=== PATIENT | male | born 1940 | race Caucasian/White ===

== ENCOUNTER → 2018-10-14 | Day surgery (SDC) | payer MEDICARE, OTHER ==
[~2018-10-14] MED LIST: COREG25 MG PO; CRESTOR10 MG PO; ELIQUIS5 MG PO; ELMIRON 100 MG100 M1 PO; LOSARTAN POTASS50 MG PO
--- NOTE | ~2018-10-14 | PROC ---
[address] [place] [address] PROCEDURE REPORT Name: MARITZA ANGEL Room: [facility]#: [id number] Admission: 10/14/18 Attend Phys: Jonathan Thompson DO Discharge: Date of : 38 Report #: [id number] THIS REPORT FOR: //name// For GI report, please see the Provation report in Perceptive 7 content. By: 0651Medical Records Staff MARGUERITE /KRISTY
[2018-10-14 08:53] LABS: HEMATOCRIT 46.2 % (42.0-52.0); HEMOGLOBIN 15.2 gm/dL (14.0-18.0); MCH 29.8 pg (26.0-34.0); MCHC 32.9 g/dL (28.0-37.0); MCV 90.5 fL (80.0-100.0); MPV 8.5 fl. (7.2-11.1); RBC 5.1 mil/uL (4.50-6.00); RDW-CV 14.1 % (10.5-14.5); WBC 4.9 thou/uL (4.0-11.0)
[2018-10-14 09:07] LABS: ALBUMIN 4.1 g/dL (3.4-5.0); CALCIUM 8.8 mg/dL (8.5-10.1); CREATININE 1.4 mg/dL (0.6-1.3); POTASSIUM 4.1 mmol/L (3.5-5.1); TOTAL BILIRUBIN 0.8 mg/dL (<0.1-1.0); TOTAL PROTEIN 7.6 g/dL (6.4-8.2)
--- NOTE | 2018-10-14 13:18 | EKG ---
[place] [address] ELECTROCARDIOGRAM REPORT Name: MARITZA ANGEL Room: [facility]#: [id number] Admission: 10/14/18 Attend Phys: Jonathan Thompson DO Discharge: Date of : 38 Report #: [id number] THIS REPORT FOR: //name// [facility] Test Date: 2018-10-14 Test Time: 08:42:47 Pat Name: MARITZA ANGEL Department: Room: Gender: City Driver: : 1940 Requested By: Jonathan Thompson Order Number: [id number] MD: Jaylon Boone Measurements Intervals [place] Rate: 65 P: 79 [place]: 135 QRS: 114 QRSD: 118 T: 97 QT: 459 QTc: 478 Interpretive Statements Atrial-ventricular dual-paced complexes No further analysis attempted due to paced rhythm No previous ECG available for comparison Electronically Signed On 10-14-2018 13:18:21 CDT by Jaylon Boone [email or web address] <ELECTRONICALLY SIGNED> By: Jaylon Boone MD, [facility] 10/14/18 1318 1 1 Jaylon Boone MD, FACC /EPI
--- NOTE | 2018-10-15 17:07 | PATH ---
[address] [address] PATHOLOGY RPT PROCEDURE Name: [address] Room: [facility]#: [id number] Admission: 10/14/18 Date of : 38 Discharge: Report #: [id number] Path Case #: [id number] [facility] Accession Number: [id number] . 01 Material submitted: . PART A: CECAL POLYP; PIECEMEAL PART B: PROXIMAL ASCENDING COLON POLYP PART C: MID-ASCENDING COLON POLYP PART D: HEPATIC FLEXURE POLYP; PIECEMEAL PART E: DISTAL TRANSVERSE COLON - SUSPECT COLITIS PART F: DESCENDING COLON BIOPSY PART G: SIGMOID COLON BIOPSY PART H: RECTAL BIOPSY . 01 Clinical history: . Pre-OP DX: POS fecal occult blood test, Hx of GI diverticular BLD test Post-OP DX: Long-term use of anticoagulants . 02 Diagnosis: A. Cecal polyp, piecemeal: - Tubular adenoma, negative for high-grade dysplasia. . B. Proximal ascending colon polyp: - Tubular adenoma, negative for high-grade dysplasia. . C. Mid ascending colon polyp: - Tubular adenoma, negative for high-grade dysplasia. . D. Hepatic flexure polyp, piecemeal: - Tubular adenoma, negative for high-grade dysplasia. . E. Distal transverse colon (suspect colitis): - Hyperplastic lymphoid follicle (Peyer's patch) in otherwise normal colonic mucosa. . F. Descending colon biopsy: - Chronic active colitis, negative for granulomas, viral inclusions and dysplasia. See comment. . G. Sigmoid colon biopsy: - Focal active colitis with suggestion of chronic colitis, negative for granulomas, viral inclusions and dysplasia. See comment. . H. Rectal biopsy: - Chronic and severe active colitis with ulceration, fibrosis and regenerative features, negative for granulomas, viral inclusions and dysplasia. See comment. . (MATT:gonzalez; 10/15/2018) [place] [address] PATHOLOGY RPT PROCEDURE Name: [address] Room: [facility] Lelia#: [id number] Admission: 10/14/18 Date of : 38 Discharge: Report #: [id number] Path Case #: [id number] MBR/10/15/2018 . 02 Comment: The descending colon biopsy (F) shows benign colonic mucosa with crypt distortion and only minimal basal lymphoplasmacytosis and with easily identified neutrophils in the lamina propria. . The sigmoid colon biopsy (G) shows benign colonic mucosa with a fairly discreet focus of active inflammation with crypt disarray and minimal basal lymphoplasmacytosis suggesting, in addition, chronic inflammation. . The rectal biopsy (H) shows benign colonic mucosa with evidence of chronic inflammation including prominent basal lymphoplasmacytosis and crypt distortion, as well as active inflammation with ulceration, areas of inflamed stroma with a single cell layer of overlying epithelium, and prominent fibrosis. . These findings raise a concern for Crohn's disease and the histologic differential would include use of non-steroidal anti-inflammatory agents as well as diverticular disease. . (MATT:gonzalez; 10/15/2018) . 02 Electronically signed: . Cyril Flowers MD, Pathologist NPI- [id number] . 01 Gross description: . A. Received in formalin labeled "[address], cecal polyp, piecemeal," are multiple segments of vazquez soft tissue measuring 2.4 x 1.5 x 0.4 cm in aggregate dimensions. The specimen is filtered and entirely submitted in cassettes A1 and A2. . B. Received in formalin labeled "[address], proximal ascending colon polyp," are 5 segments of vazquez soft tissue measuring 1.5 x 0.9 x 0.4 cm in aggregate dimensions and ranging from 0.4 to 0.5 cm in maximum dimension. The specimen is submitted entirely in cassette B1. . C. Received in formalin labeled "[address], mid-ascending colon polyp," is a single segment of vazquez soft tissue measuring 0.4 cm in maximum dimension. The specimen is entirely submitted in cassette C1. . D. Received in formalin labeled "[address], hepatic flexure polyp," is a 1.0 x 0.4 x 0.4 cm polypoid piece of vazquez soft tissue. The margin is inked and the specimen is sectioned perpendicular to the margin and entirely submitted in cassette D1. Also received in the container is a 1.0 x 0.6 x 0.5 cm polypoid piece of vazquez soft tissue. The margin is inked and the specimen is sectioned [place] [address] PATHOLOGY RPT PROCEDURE Name: [address] Room: [facility]#: [id number] Admission: 10/14/18 Date of : 38 Discharge: Report #: [id number] Path Case #: [id number] entirely submitted in cassette D2. Additionally received in the container are multiple fragments of vazquez soft tissue measuring 2.5 x 1.5 x 0.4 cm in aggregate dimensions. The specimen is filtered and entirely submitted in cassettes D3 and D4. . E. Received in formalin labeled "[address], distal transverse colon- suspect colitis," is a single segment of vazquez soft tissue measuring 0.5 cm in maximum dimension. The specimen is entirely submitted in cassette E1. . F. Received in formalin labeled "[address], descending colon," are 2 segments of vazquez soft tissue measuring 0.5 x 0.2 x 0.2 cm in aggregate dimensions and ranging from 0.1 to 0.4 cm in maximum dimension. The specimen is submitted entirely in cassette F1. . G. Received in formalin labeled "[address], sigmoid colon," is a single segment of vazquez soft tissue measuring 0.4 cm in maximum dimension. The specimen is entirely submitted in cassette G1. . H. Received in formalin labeled "[address], rectal biopsy," are 2 segments of vazquez soft tissue measuring 0.7 x 0.2 x 0.1 cm in aggregate dimensions and ranging from 0.3 to 0.4 cm in maximum dimension. The specimen is submitted entirely in cassette H1. (TSD; 10/14/2018) TOB/TOB . 02 Pathologist provided ICD-10: D12.0, D12.2, D12.3, K52.9, K62.6, K62.89 . 02 CPT . 154224, 297197, 834116, 169948, 361258, 794664, 890113, 147223 Specimen Comment: A courtesy copy of this report has been sent to Specimen Comment: [phone], . Specimen Comment: Report sent to / DR ARAIZA Performed at: [address] [facility] [address], [place], [place] [id number] MD Timo Miranda MD Phone: [phone] Performed at: 02 [facility] [place] [address] [address], [place], [place] [id number] MD Cyril Flowers MD Phone: [phone]
== END | disposition home or self-care (01) ==
LOC: M.SUR 08:26
PROVIDERS: Internal Medicine Gastroenterology
DX: D12.0 Benign neoplasm of cecum (principal); D12.2 Benign neoplasm of ascending colon; D12.3 Benign neoplasm of transverse colon; K57.30 Diverticulosis of large intestine without perforation or abscess without bleeding; K63.89 Other specified diseases of intestine; K62.89 Other specified diseases of anus and rectum; K52.9 Noninfective gastroenteritis and colitis, unspecified; K62.6 Ulcer of anus and rectum; K64.4 Residual hemorrhoidal skin tags; I10 Essential (primary) hypertension; E78.5 Hyperlipidemia, unspecified; I48.91 Unspecified atrial fibrillation; G47.33 Obstructive sleep apnea (adult) (pediatric); Z79.01 Long term (current) use of anticoagulants; Z90.49 Acquired absence of other specified parts of digestive tract; Z95.0 Presence of cardiac pacemaker; Z98.890 Other specified postprocedural states; Z79.899 Other long term (current) drug therapy

== ENCOUNTER 2020-07-06 06:21 | Emergency (ER) | payer MEDICARE, OTHER ==
[~2020-07-06] VITALS: Ht 182.9 cm; Wt 90.7 kg
[2020-07-06 08:48] VITALS: BP 138/80
== END 2020-07-06 08:49 | disposition home or self-care (01) ==
LOC: M.ERS 06:21
DX: S01.01XA Laceration without foreign body of scalp, initial encounter (principal); I10 Essential (primary) hypertension; Z79.899 Other long term (current) drug therapy; W06.XXXA Fall from bed, initial encounter; Y93.89 Activity, other specified; Y92.89 Other specified places as the place of occurrence of the external cause; Y99.8 Other external cause status

== ENCOUNTER 2020-07-19 08:18 | Emergency (ER) | payer MEDICARE, OTHER ==
[~2020-07-19] VITALS: Ht 182.9 cm; Wt 90.7 kg
[2020-07-19 08:44] VITALS: BP 126/76
== END 2020-07-19 08:44 | disposition home or self-care (01) ==
LOC: M.ERS 08:18
DX: S01.01XD Laceration without foreign body of scalp, subsequent encounter (principal); I10 Essential (primary) hypertension; Z95.0 Presence of cardiac pacemaker; Z79.899 Other long term (current) drug therapy; X58.XXXD Exposure to other specified factors, subsequent encounter